=== PATIENT | female | born 1990 | race Caucasian/White ===

== ENCOUNTER 2018-10-07 14:00 | Inpatient (IN) | payer BC ==
[2018-10-07] MEDS ORDERED: Nalbuphine 20 MG/ML 1 ML Syringe IVPUSH PRN (16:44)
[2018-10-07] MEDS ORDERED: Ondansetron 4 MG/2 ML SDV IVPUSH PRN ×2 (16:44→17:06)
[2018-10-07] MEDS ORDERED: Sodium Chloride 0.9% 10 ML SDV FLUSH PRN (16:44)
[2018-10-07] MEDS ORDERED: Oxytocin/Lactated Ringers 10 UNIT/1,000 ML BAG IV SCH (16:45)
--- NOTE | 2018-10-07 16:46 | PCM.LDHP ---
L&D History of Present Illness - General Date of Service: 10/07/18 Admit Problem/Dx: Patient Status Order with Admit Dx/Problem 10/07/18 14:37 Patient Status [ADT] Routine 10/07/18 16:44 Patient Status [ADT] Routine Admission Diagnosis/Problem Admission Diagnosis/Problem Source of Information: Patient History Limitations: Reports: No Limitations - History of Present Illness Introduction:: Patient is a 28 y/o at 39 0/7 wks who presents for concerns of possible ROM. This wet/leaking feeling started a few hours ago. No significant contractions. No other concerns. - Related Data Allergies/Adverse Reactions: Allergies Allergy/AdvReac Type Severity Reaction Status Date / Time Sulfa (Sulfonamide Allergy Other Verified 10/07/18 14:36 Antibiotics) Home Medications: Home Meds Vits #93/Iron Fum/FA [ Formula Tablet] 1 tab PO DAILY 10/07/18 [History] Past Medical History Respiratory History: Reports: Asthma CHAINMAN History: Reports: , Spontaneous : 4 Para: 1 LMP (Approximate): Hematologic History: Reports: Blood Transfusion(s) - Past Surgical History Female Surgical History: Reports: D&C (Multiple after delivery in 2011 and one after SAB in 2014), Other (See Below) (Diagnostic laparoscopy Hysteroscopy) Social & Family History - Tobacco Use Smoking Status *Q: Never Smoker - Alcohol Use Alcohol Use History: No - Recreational Drug Use Recreational Drug Use: No H&P Review of Systems - Review of Systems: Review Of Systems: See Below General: Reports: No Symptoms Pulmonary: Reports: No Symptoms Cardiovascular: Reports: No Symptoms Gastrointestinal: Reports: No Symptoms Genitourinary: Reports: No Symptoms Musculoskeletal: Reports: No Symptoms Skin: Reports: No Symptoms Psychiatric: Reports: No Symptoms Neurological: Reports: No Symptoms L&D Exam - Exam Exam: See Below - Vital Signs Weight: 74.389 kg - OB Specific Contraction Intensity: Irritability Movement: Active Heart Tones: Present Heart Tones per Min: 130 Heart Rate (FHR) Variability: Moderate (6-25 bmp) Presentation: Vertex - Loza Score Loza Score Cervix Position: Midposition Loza Score Consistency: Soft Loza Score Effacement: 51-70% Loza Score Dilation: 3-4 cm Loza Score 's Station: -2 Loza Score Total: 8 - Exam General: Alert, Oriented, Cooperative Lungs: Clear to Auscultation, Normal Respiratory Effort Cardiovascular: Regular Rate, Regular Rhythm GI/Abdominal Exam: Soft, Non-Tender Genitourinary: Normal external exam Extremities: Normal Inspection Skin: Warm, Dry, Intact - Patient Data Lab Results Last 24 hrs: Laboratory Results - last 24 hr 10/07/18 Range/Units 14:45 Membrane Rupture Negative Result Diagrams: 10/07/18 17:00 - Problem List (1) 39 weeks gestation of SNOMED Code(s): 32416537 ICD Code: Z3A.39 - 39 WEEKS GESTATION OF Status: Acute Current Visit: Yes (2) Rh negative state in antepartum period SNOMED Code(s): 705424162 ICD Code: O26.899 - OTH RELATED CONDITIONS, UNSPECIFIED TRIMESTER; Z67.91 - UNSPECIFIED BLOOD TYPE, RH NEGATIVE Status: Acute Current Visit: Yes Problem List Initiated/Reviewed/Updated: Yes Orders Last 24hrs: Active Orders 24 hr Category Date Time Status Patient Status [ADT] Routine ADT 10/07/18 14:37 Active Patient Status [ADT] Routine ADT 10/07/18 16:44 Ordered Activity as Tolerated [RC] PFP Care 10/07/18 16:44 Ordered Communication Order [RC] ASDIRECTED Care 10/07/18 16:44 Ordered Heart Tones [RC] ASDIRECTED Care 10/07/18 16:44 Ordered Non Stress Test [RC] PER UNIT ROUTINE Care 10/07/18 14:37 Active Non Stress Test [RC] PER UNIT ROUTINE Care 10/07/18 16:44 Ordered Notify Provider [RC] PFP Care 10/07/18 16:44 Ordered Notify Provider [RC] PRN Care 10/07/18 16:44 Ordered Peripheral IV Care [RC] . DIRECTED Care 10/07/18 16:44 Ordered Vaginal Exam [RC] PRN Care 10/07/18 14:37 Active Vital Signs [RC] PER UNIT ROUTINE Care 10/07/18 14:37 Active Vital Signs [RC] PER UNIT ROUTINE Care 10/07/18 16:44 Ordered Regular Diet [DIET] Diet 10/07/18 Dinner Ordered CBC W/O DIFF,HEMOGRAM [HEME] Routine Lab 10/07/18 16:44 Ordered RAPID PLASMA REAGIN,RPR [CHEM] Routine Lab 10/07/18 16:44 Ordered TYPE AND SCREEN [BBK] Routine Lab 10/07/18 16:44 Ordered Lactated Ringers [Ringers, Lactated] 1,000 ml Med 10/07/18 16:45 Ordered IV ASDIRECTED Nalbuphine [Nubain] Med 10/07/18 16:44 Ordered 10 mg IVPUSH Q2H PRN Ondansetron [Zofran] Med 10/07/18 16:44 Ordered 4 mg IVPUSH Q4H PRN Oxytocin/Lactated Ringers [Pitocin in LR 10 Units/1,000 Med 10/07/18 16:45 Ordered ML] 10 unit in 1,000 ml IV .CONTINUOUS Sodium Chloride 0.9% [Saline Flush] Med 10/07/18 16:44 Ordered 10 ml FLUSH ASDIRECTED PRN Electronic Heart Tones Ext w TOCO [WOMSER] Oth 10/07/18 16:44 Ordered Routine Electronic Heart Tones Internal [WOMSER] Per Unit Ot 10/07/18 16:44 Ordered Routine Peripheral IV Insertion Adult [OM.PC] Routine Oth 10/07/18 16:44 Ordered Resuscitation Status Routine Resus Stat 10/07/18 14:37 Ordered Assessment/Plan Comment:: 28 y/o at 39 0/7 wks who presented for concerns of ROM. Amnisure done and negative, but during course of monitoring baby with spontaneous deceleration down to the 50's with slow recovery over 4 minutes. Will keep for IOL for this findings. 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 Also with diagnosis of Ashermans afterwards. Will monitor closely and have uterotonic agents in room in case further concerns this
[2018-10-07] MEDS ORDERED: fentaNYL/Bupivacaine-NS 2 MCG/ML-0.125%/PF 100 ML Bag EPIDUR ONE (17:06)
[2018-10-07] MEDS ORDERED: fentaNYL 100 MCG/2 ML SDV EPIDUR PRN (17:06)
[2018-10-07] MEDS ORDERED: ePHEDrine 50 MG/ML SDV IVPUSH PRN (17:06)
--- NOTE | 2018-10-07 17:11 | PCM.PREANE ---
Preanesthetic Assessment - Anesthesia/Transfusion/Family Hx Anesthesia History: Prior Anesthesia Without Reaction Family History of Anesthesia Reaction: No Transfusion History: Prior Transfusion Without Reaction Intubation History: Unknown - Review of Systems General: No Symptoms Pulmonary: No Symptoms (exercise induced inhaler) Cardiovascular: No Symptoms Gastrointestinal: No Symptoms, Constipation Neurological: No Symptoms Other: Reports: None, Easy Bruising - Physical Assessment NPO Status Date: 10/07/18 NPO Status Time: 10:00 Pulse: 74 O2 Sat by Pulse Oximetry: 99 Respiratory Rate: 18 Blood Pressure: 117/70 Temperature: 36.6 C Height: 1.57 m Weight: 74.389 kg ASA Class: 2 Mental Status: Alert & Oriented x3 Airway Class: Mallampati = 2 Dentition: Reports: Normal Dentition, Missing Tooth/Teeth, Caries Thyro-Mental Finger Breadths: 3 Mouth Opening Finger Breadths: 3 ROM/Head Extension: Full Lungs: Clear to Auscultation, Normal Respiratory Effort Cardiovascular: Regular Rate, Regular Rhythm, No Murmurs - Lab Values: Laboratory Last Values WBC 12.11 K/mm3 (3.98-10.04) H 10/07/18 17:00 RBC 4.35 M/mm3 (3.98-5.22) 10/07/18 17:00 Hgb 11.2 gm/L (11.2-15.7) 10/07/18 17:00 Hct 34.7 % (34.1-44.9) 10/07/18 17:00 MCV 79.8 fl (79.4-94.8) 10/07/18 17:00 MCH 25.7 pg (25.6-32.2) 10/07/18 17:00 MCHC 32.3 g/dl (32.2-35.5) 10/07/18 17:00 RDW Std Deviation 39.3 fL (36.4-46.3) 10/07/18 17:00 Plt Count 211 K/mm3 (182-369) 10/07/18 17:00 MPV 11.4 fl (9.4-12.3) 10/07/18 17:00 Membrane Rupture Negative 10/07/18 14:45 Above labs reviewed and noted and within acceptable ranges to proceed with epidural if desired. - Allergies Allergies/Adverse Reactions: Allergies Allergy/AdvReac Type Severity Reaction Status Date / Time Sulfa (Sulfonamide Allergy Other Verified 10/07/18 14:36 Antibiotics) - Anesthesia Plan Pre-Op Medication Ordered: None - Acknowledgements Anesthesia Type Planned: Epidural Pt an Appropriate Candidate for the Planned Anesthesia: Yes Alternatives and Risks of Anesthesia Discussed w Pt/Guardian: Yes Pt/Guardian Understands and Agrees with Anesthesia Plan: Yes PreAnesthesia Questionnaire LENS GRINDER History: Reports: Polycystic Ovaries, Other (See Below) Other OB/BYN History: asherman's syndrome, PPH WITH PRIOR DELIVERY Neurological History: Reports: Migraines - Past Surgical History HEENT Surgical History: Reports: Oral Surgery - SUBSTANCE USE Smoking Status *Q: Never Smoker Second Hand Smoke Exposure: No Recreational Drug Use History: No - CURRENT (IN HOUSE) MEDS Current Meds: Current Medications Ephedrine Sulfate (Ephedrine Sulfate) 5 mg IVPUSH ASDIRECTED PRN PRN Reason: Hypotension Fentanyl (Sublimaze) 100 mcg EPIDUR Q3H PRN PRN Reason: Pain Lactated Ringer's (Ringers, Lactated) 1,000 mls @ 100 mls/hr IV ASDIRECTED ROSSANA Oxytocin/Lactated Ringer's (Pitocin In Lr 10 Units/1,000 Ml) 10 unit in 1,000 mls @ 500 mls/hr IV .CONTINUOUS ROSSANA Phenylephrine HCl 1 mg/ Sodium (Chloride) 10.1 mls @ 1 mls/sec IV TITRATE ROSSANA; Protocol Nalbuphine HCl (Nubain) 10 mg IVPUSH Q2H PRN PRN Reason: pain Ondansetron HCl (Zofran) 4 mg IVPUSH Q4H PRN PRN Reason: Nausea/Vomiting Ondansetron HCl (Zofran) 4 mg IVPUSH ONETIME PRN PRN Reason: Nausea/Vomiting Sodium Chloride (Normal Saline) 10 ml FLUSH ASDIRECTED PRN PRN Reason: Keep Vein Open Discontinued Medications Fentanyl/Bupivacaine HCl (Tbkxiicf-Prqby-Ql 2 Mcg/Ml-0.125%) 100 ml EPIDUR ONETIME ONE Stop: 10/07/18 17:07
[2018-10-07] MEDS ORDERED: Phenylephrine 1 MG in Sodium Chloride 0.9% 10 ML IV SCH (17:15)
[2018-10-07] MEDS: Lactated Ringers 1,000 ML IV SCH ×3 (19:37→21:07)
[2018-10-07] MEDS ORDERED: fentaNYL/Bupivacaine-NS 2 MCG/ML-0.125%/PF 100 ML Bag EPIDUR PRN (20:08)
[2018-10-07] MEDS ORDERED: Lidocaine 1.5% with EPINEPHrine 1:200,000 5 ML Amp ONE (22:00)
[2018-10-07] MEDS ORDERED: Bupivacaine 0.25% 10 ML SDV ONE (22:00)
--- NOTE | 2018-10-07 23:46 | PCM.DEL ---
L & D Note - General Info Date of Service: 10/07/18 - Delivery Note Labor: Induced by ARM Delivery Outcome: Livebirth Infant Delivery Method: Spontaneous Vaginal Delivery-Single Infant Delivery Mode: Vacuum Extraction Presentation: Right Occiput Anterior (JEWEL) Nuchal Cord: None Anesthesia Type: Epidural Amniotic Fluid Description: Clear Episiotomy Type: None Laceration: 2nd Degree, Labial (left sided ), Perineal, Sulcus Suture type: Vicryl Suture size: 2-0 Placenta: Intact, Spontaneous Cord: 3 Vessels Estimated Blood Loss: 300 : Bulb Syringe, Stimulated, Warmed, Leck Kill Used, Warmer Used Delivery Comments (Free Text/Narrative):: The patient was pushing in the dorsal lithotomy position. Sterile vaginal exam complete/complete/+3 station. head in JEWEL presentation. With maternal pushing effort there was a bradycardia. This was at 2248 down to the 60' s for 2 minutes with a brief recovery to 110 and then back down to 60's-70's. Given prolonged deceleration vacuum applied at 2254. The mushroom cup was placed without difficulty with care to avoid the vaginal side pastor. Total pressure applied 550 mg. Pop off did occur at 2257 after 2 contractions. At this point, however, heart rate noted to be in 100's and felt safe to allow continued maternal pushing effort without subsequent reapplication of vacuum. head delivered from JEWEL presentation. No nuchal cord present. With gentle downward traction the shoulders and body delivered. Delivery at 2313. placed on maternal abdomen. Cord clamped and cut. Cord blood obtained. Placenta allowed time to separate and expelled intact. Inspection of the perineum following delivery with 2nd degree left sulcus/perineal tear repaired with a 2-0 vicryl in the typical fashion. Left sided labial tear repaired with a running 2-0 vicryl Vacuum Extractor Progress Note - Alternative Labor Strategies Considered Alternative Labor Strategies Considered:: Reports: Yes Strategies Considered:: Reports: Empty Bladder Indications Considered:: Reports: Yes Indications:: Reports: Suspicion of Immediate or Potential Compromise Time Out:: Reports: Yes - Patient Prepared Patient Prepared:: Reports: Yes Informed Consent:: Reports: Verbal Risks: Reports: Yes Risks Include:: Reports: Laceration, Shoulder Dystocia, Maternal Injury, Other Anesthesia/Analgesia Adequate:: Reports: Yes - Probability of Success High Probability of Success:: Reports: Yes Weight Estimated:: Reports: AGA Patient Diabetic:: Reports: No Pelvis Adequate:: Reports: Yes Position:: JEWEL Asynclitic:: Reports: No Station:: +3 - Application Time Maximum Application Time & Number of Pop-Offs Predetermined:: Reports: Yes Maximum Pressure Maintained in Green Zone (cm Hg):: 550 Total Application Time (min): *max=20min: 4 Number of Times Cup Disengaged:: 1 Type of Vacuum Used:: Reports: Cup: Mushroom type Vacuum Extraction: Successful - Exit Strategy Exit strategy available:: Reports: Yes and resuscitation teams readily available:: Reports: Yes - General Info Date of Service: 10/07/18 - Patient Data Vitals - Most Recent: Last Vital Signs Temp 36.6 C 10/07/18 17:29 Pulse 76 10/07/18 21:00 Resp 18 10/07/18 17:29 BP 121/62 10/07/18 21:00 Pulse Ox 99 10/07/18 20:12 Weight - Most Recent: 74.389 kg I&O - Last 24 Hours: Intake & Output 10/07/18 10/07/18 10/08/18 14:59 22:59 06:59 Intake Total 0 Balance 0 - Problem List & Annotations (1) 39 weeks gestation of SNOMED Code(s): 05808488 Code(s): Z3A.39 - 39 WEEKS GESTATION OF Status: Acute Current Visit: Yes (2) Rh negative state in antepartum period SNOMED Code(s): 338315843 Code(s): O26.899 - OTH RELATED CONDITIONS, UNSPECIFIED TRIMESTER; Z67.91 - UNSPECIFIED BLOOD TYPE, RH NEGATIVE Status: Acute Current Visit: Yes (3) Status post vacuum-assisted vaginal delivery SNOMED Code(s): 741796185, [id number] Code(s): Z87.59 - PERSONAL HISTORY OF COMP OF PREG, CHLDBRTH AND THE PUERP Status: Acute Current Visit: Yes - Problem List Review Problem List Initiated/Reviewed/Updated: Yes - My Orders Last 24 Hours: My Active Orders 10/07/18 14:37 Vital Signs [RC] PER UNIT ROUTINE Resuscitation Status Routine 10/07/18 16:44 Patient Status [ADT] Routine Activity as Tolerated [RC] PFP Communication Order [RC] ASDIRECTED Non Stress Test [RC] PER UNIT ROUTINE Notify Provider [RC] PFP Notify Provider [RC] PRN Peripheral IV Care [RC] Q2HR Vital Signs [RC] PER UNIT ROUTINE Nalbuphine [Nubain] 10 mg IVPUSH Q2H PRN Ondansetron [Zofran] 4 mg IVPUSH Q4H PRN Sodium Chloride 0.9% [Normal Saline] 10 ml FLUSH ASDIRECTED PRN Electronic Heart Tones Ext w TOCO [WOMSER] Routine Electronic Heart Tones Internal [WOMSER] Per Unit Routine Peripheral IV Insertion Adult [OM.PC] Routine 10/07/18 16:45 Lactated Ringers [Ringers, Lactated] 1,000 ml IV ASDIRECTED Oxytocin/Lactated Ringers [Pitocin in LR 10 Units/1,000 ML] 10 unit in 1,000 ml IV .CONTINUOUS 10/07/18 17:00 ANTIBODY IDENTIFICATION [BBK] Routine RAPID PLASMA REAGIN,RPR [CHEM] Routine TYPE AND SCREEN [BBK] Routine 10/07/18 Dinner Regular Diet [DIET] - Assessment Assessment:: 28 y/o G4 now P2022 PPD#0 from [facility] - Plan Plan:: * Routine cares * Encourage breast feeding * Assess baby blood type to assess need for Rhogam * Discharge home in 2 days
[2018-10-08] MEDS ORDERED: Acetaminophen 325 MG Tab PO PRN (00:38)
[2018-10-08] MEDS ORDERED: Lanolin 100% Cream 7 GM Tube TOP PRN (00:38)
[2018-10-08] MEDS ORDERED: Benzocaine/Menthol 20%-0.5% Spray 56 GM Canister TOP PRN (00:38)
[2018-10-08] MEDS ORDERED: Witch Hazel Medicated Pads 40/Jar TOP PRN (00:38)
[2018-10-08] MEDS: Ibuprofen 600 MG Tab PO PRN ×3 (01:51→20:25)
[2018-10-08] MEDS: Docusate Sodium 100 MG Cap PO PRN (01:51)
--- NOTE | 2018-10-08 09:44 | PCM.PNPP ---
- General Info Date of Service: 10/08/18 Functional Status: Reports: Pain Controlled, Tolerating Diet, Ambulating, Urinating - Review of Systems General: Reports: No Symptoms Pulmonary: Reports: No Symptoms Cardiovascular: Reports: No Symptoms Gastrointestinal: Reports: No Symptoms Genitourinary: Reports: No Symptoms Musculoskeletal: Reports: No Symptoms - Patient Data Vital Signs - Most Recent: Last Vital Signs Temp 37.2 C 10/08/18 02:55 Pulse 90 10/08/18 02:55 Resp 14 10/08/18 02:55 BP 107/60 10/08/18 02:55 Pulse Ox 95 10/08/18 02:55 Weight - Most Recent: 74.389 kg I&O - Last 24 Hours: Intake & Output 10/07/18 10/08/18 10/08/18 22:59 06:59 14:59 Intake Total 0 4000 Output Total 75 Balance -75 4000 Lab Results - Last 24 Hours: Laboratory Results - last 24 hr 10/07/18 10/07/18 10/07/18 Range/Units 14:45 17:00 17:00 WBC 12.11 H (3.98-10.04) K/mm3 RBC 4.35 (3.98-5.22) M/mm3 Hgb 11.2 (11.2-15.7) gm/L Hct 34.7 (34.1-44.9) % MCV 79.8 (79.4-94.8) fl MCH 25.7 (25.6-32.2) pg MCHC 32.3 (32.2-35.5) g/dl RDW Std Deviation 39.3 (36.4-46.3) fL Plt Count 211 (182-369) K/mm3 MPV 11.4 (9.4-12.3) fl Membrane Rupture Negative Blood Type O NEGATIVE Gel Antibody Screen Positive Med Orders - Current: Current Medications Acetaminophen (Tylenol) 650 mg PO Q4H PRN PRN Reason: mild pain or fever Benzocaine/Menthol (Dermoplast Pain Relief [place]) 0 gm TOP ASDIRECTED PRN PRN Reason: Perineal Comfort Measure Last Admin: 10/08/18 01:53 Dose: 1 can Docusate Sodium (Colace) 100 mg PO BID PRN PRN Reason: Constipation Last Admin: 10/08/18 01:51 Dose: 100 mg Emollient Ointment (Lansinoh Hpa) 0 gm TOP ASDIRECTED PRN PRN Reason: Sore Nipples Last Admin: 10/08/18 01:52 Dose: 1 tube Ibuprofen (Motrin) 600 mg PO Q6H PRN PRN Reason: Mild pain or fever Last Admin: 10/08/18 01:51 Dose: 600 mg Witch Jackie (Tucks) 1 pad TOP ASDIRECTED PRN PRN Reason: Pain Last Admin: 10/08/18 01:53 Dose: 1 container Discontinued Medications Ephedrine Sulfate (Ephedrine Sulfate) 5 mg IVPUSH ASDIRECTED PRN PRN Reason: Hypotension Fentanyl (Sublimaze) 100 mcg EPIDUR Q3H PRN PRN Reason: Pain Last Admin: 10/07/18 20:10 Dose: 100 mcg Fentanyl/Bupivacaine HCl (Tgidkdvo-Cnalk-Vd 2 Mcg/Ml-0.125%) 100 ml EPIDUR ONETIME ONE Stop: 10/07/18 17:07 Last Admin: 10/07/18 20:14 Dose: 100 ml Fentanyl/Bupivacaine HCl (Frujrjpz-Gqtcp-Fa 2 Mcg/Ml-0.125%) 100 ml EPIDUR ASDIRECTED PRN PRN Reason: PAIN Lactated Ringer's (Ringers, Lactated) 1,000 mls @ 100 mls/hr IV ASDIRECTED ROSSANA Last Admin: 10/07/18 21:07 Dose: 100 mls/hr Oxytocin/Lactated Ringer's (Pitocin In Lr 10 Units/1,000 Ml) 10 unit in 1,000 mls @ 500 mls/hr IV .CONTINUOUS ROSSANA Last Admin: 10/07/18 23:14 Dose: 999 mls/hr Phenylephrine HCl 1 mg/ Sodium (Chloride) 10.1 mls @ 1 mls/sec IV TITRATE ROSSANA; Protocol Nalbuphine HCl (Nubain) 10 mg IVPUSH Q2H PRN PRN Reason: pain Ondansetron HCl (Zofran) 4 mg IVPUSH Q4H PRN PRN Reason: Nausea/Vomiting Ondansetron HCl (Zofran) 4 mg IVPUSH ONETIME PRN PRN Reason: Nausea/Vomiting Sodium Chloride (Normal Saline) 10 ml FLUSH ASDIRECTED PRN PRN Reason: Keep Vein Open - Infant Interaction Disposition, : [place] in Room with Family Infant Interaction: Holding Feeding: Attempted ; Nursed Fair/Poor Support Person: - Recovery Exam Fundal Tone: Firm Fundal Level: 1 Fingerbreadths Below Umbilicus Fundal Placement: Midline Lochia Amount: Small, Moderate Lochia Color: Rubra/Red Perineum Description: Other (see below) Other Perinuem Description: 2nd degree laceration with repair Episiotomy/Laceration: Approximated Bladder Status: Voiding Urinary Elimination: Voided - Exam General: Alert, Oriented, Cooperative GI/Abdominal Exam: Soft, Non-Tender Extremities: Normal Inspection Skin: Warm, Dry, Intact - Problem List & Annotations (1) 39 weeks gestation of SNOMED Code(s): 88900382 Code(s): Z3A.39 - 39 WEEKS GESTATION OF Status: Acute Current Visit: Yes (2) Rh negative state in antepartum period SNOMED Code(s): 162726228 Code(s): O26.899 - OTH RELATED CONDITIONS, UNSPECIFIED TRIMESTER; Z67.91 - UNSPECIFIED BLOOD TYPE, RH NEGATIVE Status: Acute Current Visit: Yes (3) Status post vacuum-assisted vaginal delivery SNOMED Code(s): 551856388, [id number] Code(s): Z87.59 - PERSONAL HISTORY OF COMP OF PREG, CHLDBRTH AND THE PUERP Status: Acute Current Visit: Yes - Problem List Review Problem List Initiated/Reviewed/Updated: Yes - My Orders Last 24 Hours: My Active Orders 10/07/18 14:37 Resuscitation Status Routine 10/07/18 16:44 Non Stress Test [RC] PER UNIT ROUTINE 10/07/18 17:00 ANTIBODY IDENTIFICATION [BBK] Routine RAPID PLASMA REAGIN,RPR [CHEM] Routine TYPE AND SCREEN [BBK] Routine 10/08/18 00:38 Activity as Tolerated [RC] PER UNIT ROUTINE Vital Signs [RC] 03,09,15,21 Acetaminophen [Tylenol] 650 mg PO Q4H PRN Benzocaine/Menthol [Dermoplast Pain Relief [place]] See Dose Instructions TOP ASDIRECTED PRN Docusate Sodium [Colace] 100 mg PO BID PRN Ibuprofen [Motrin] 600 mg PO Q6H PRN Lanolin [Lansinoh HPA] See Dose Instructions TOP ASDIRECTED PRN Witch Jackie [Tucks] 1 pad TOP ASDIRECTED PRN Assess Lochia [WOMSER] Per Unit Routine Assess Uterine Involution [WOMSER] Per Unit Routine Breast Pump [WOMSER] Per Unit Routine Heat Therapy [OM.PC] PRN Ice Therapy [OM.PC] Per Unit Routine Perineal Care [OM.PC] Per Unit Routine Peripheral IV Discontinue [OM.PC] Routine Sitz Bath [OM.PC] Per Unit Routine 10/08/18 Breakfast Regular Diet [DIET] 10/09/18 00:38 Heat Therapy [OM.PC] PRN - Assessment Assessment:: 28 y/o G4 now P2022 PPD#1 from [facility] - Plan Plan:: * Routine cares * Encourage breast feeding * Baby Rh negative, no need for additional Rhogam * Discharge home tomorrow
--- NOTE | 2018-10-08 11:43 | PCM48HPAN ---
Post Anesthesia Note - EVALUATION WITHIN 48HRS OF ANESTHETIC Vital Signs in Normal Range: Yes Patient Participated in Evaluation: Yes Respiratory Function Stable: Yes Airway Patent: Yes Cardiovascular Function Stable: Yes Hydration Status Stable: Yes Pain Control Satisfactory: Yes Nausea and Vomiting Control Satisfactory: Yes Mental Status Recovered: Yes
[2018-10-09] MEDS: Ibuprofen 600 MG Tab PO PRN (03:02)
[2018-10-09] MEDS: Docusate Sodium 100 MG Cap PO PRN (03:02)
--- NOTE | 2018-10-09 07:22 | PCM.DCSUM1 ---
Discharge Summary - Hospital Course Diagnosis: Stroke: No - Discharge Data Discharge Date: 10/09/18 Discharge Disposition: Home, Self-Care 01 Condition: Good - Patient Instructions Diet: Usual Diet as Tolerated Activity: No Strenuous Activities Driving: May Drive Today Showering/Bathing: May Shower Wound/Incision Care: Keep Operative Site/Wound Site Clean and Dry Notify Provider of: Fever, Increased Pain, Swelling and Redness, Drainage, Nausea and/or Vomiting - Discharge Plan *PRESCRIPTION DRUG MONITORING PROGRAM REVIEWED*: No *COPY OF PRESCRIPTION DRUG MONITORING REPORT IN PATIENT IVETTE: No Home Medications: Home Meds Vits #93/Iron Fum/FA [ Formula Tablet] 1 tab PO DAILY 10/07/18 [History] Referrals: Shahla Valente MD [Primary Care Provider] - - Discharge Summary/Plan Comment DC Time >30 min.: No - General Info Date of Service: 10/09/18 Functional Status: Reports: Pain Controlled - Review of Systems General: Reports: No Symptoms HEENT: Reports: No Symptoms Pulmonary: Reports: No Symptoms Cardiovascular: Reports: No Symptoms Gastrointestinal: Reports: No Symptoms Genitourinary: Reports: No Symptoms Musculoskeletal: Reports: No Symptoms Skin: Reports: No Symptoms Neurological: Reports: No Symptoms Psychiatric: Reports: No Symptoms - Patient Data Vitals - Most Recent: Last Vital Signs Temp 36.4 C 10/09/18 03:05 Pulse 63 10/09/18 03:05 Resp 16 10/09/18 03:05 BP 117/84 10/09/18 03:05 Pulse Ox 97 10/09/18 03:05 Weight - Most Recent: 74.389 kg I&O - Last 24 hours: Intake & Output 10/08/18 10/09/18 10/09/18 22:59 06:59 14:59 Intake Total 320 Balance 320 Lab Results - Last 24 hrs: Laboratory Results - last 24 hr 10/07/18 Range/Units 17:00 RPR Non-reactive (NONREACTIVE) Med Orders - Current: Current Medications Acetaminophen (Tylenol) 650 mg PO Q4H PRN PRN Reason: mild pain or fever Last Admin: 10/08/18 17:16 Dose: 650 mg Benzocaine/Menthol (Dermoplast Pain Relief [place]) 0 gm TOP ASDIRECTED PRN PRN Reason: Perineal Comfort Measure Last Admin: 10/08/18 01:53 Dose: 1 can Docusate Sodium (Colace) 100 mg PO BID PRN PRN Reason: Constipation Last Admin: 10/09/18 03:02 Dose: 100 mg Emollient Ointment (Lansinoh Hpa) 0 gm TOP ASDIRECTED PRN PRN Reason: Sore Nipples Last Admin: 10/08/18 01:52 Dose: 1 tube Ibuprofen (Motrin) 600 mg PO Q6H PRN PRN Reason: Mild pain or fever Last Admin: 10/09/18 03:02 Dose: 600 mg Witch Jackie (Tucks) 1 pad TOP ASDIRECTED PRN PRN Reason: Pain Last Admin: 10/08/18 01:53 Dose: 1 container Discontinued Medications Bupivacaine HCl (Sensorcaine-Mpf 0.25%) 10 ml .ROUTE .STK-MED ONE Stop: 10/07/18 22:01 Ephedrine Sulfate (Ephedrine Sulfate) 5 mg IVPUSH ASDIRECTED PRN PRN Reason: Hypotension Fentanyl (Sublimaze) 100 mcg EPIDUR Q3H PRN PRN Reason: Pain Last Admin: 10/07/18 20:10 Dose: 100 mcg Fentanyl/Bupivacaine HCl (Uuucpckc-Qzhmc-No 2 Mcg/Ml-0.125%) 100 ml EPIDUR ONETIME ONE Stop: 10/07/18 17:07 Last Admin: 10/07/18 20:14 Dose: 100 ml Fentanyl/Bupivacaine HCl (Zczbtfdg-Gxpgc-Lc 2 Mcg/Ml-0.125%) 100 ml EPIDUR ASDIRECTED PRN PRN Reason: PAIN Lactated Ringer's (Ringers, Lactated) 1,000 mls @ 100 mls/hr IV ASDIRECTED ROSSANA Last Admin: 10/07/18 21:07 Dose: 100 mls/hr Oxytocin/Lactated Ringer's (Pitocin In Lr 10 Units/1,000 Ml) 10 unit in 1,000 mls @ 500 mls/hr IV .CONTINUOUS ROSSANA Last Admin: 10/07/18 23:14 Dose: 999 mls/hr Phenylephrine HCl 1 mg/ Sodium (Chloride) 10.1 mls @ 1 mls/sec IV TITRATE ROSSANA; Protocol Lidocaine/Epinephrine (Xylocaine-Mpf 1.5% W/Epinephrine 1:200,000) 5 ml .ROUTE .STK-MED ONE Stop: 10/07/18 22:01 Nalbuphine HCl (Nubain) 10 mg IVPUSH Q2H PRN PRN Reason: pain Ondansetron HCl (Zofran) 4 mg IVPUSH Q4H PRN PRN Reason: Nausea/Vomiting Ondansetron HCl (Zofran) 4 mg IVPUSH ONETIME PRN PRN Reason: Nausea/Vomiting Sodium Chloride (Normal Saline) 10 ml FLUSH ASDIRECTED PRN PRN Reason: Keep Vein Open - Exam General: Reports: Alert, Oriented HEENT: Reports: Pupils Equal, Pupils Reactive, EOMI, Mucous Membr. Moist/[place] Neck: Reports: Supple Lungs: Reports: Clear to Auscultation, Normal Respiratory Effort Cardiovascular: Reports: Regular Rate, Regular Rhythm GI/Abdominal Exam: Normal Bowel Sounds, Soft, Non-Tender, No Organomegaly, No Distention, No Abnormal Bruit, No Mass, Pelvis Stable Back Exam: Reports: Normal Inspection, Full Range of Motion Extremities: Normal Inspection, Normal Range of Motion, Non-Tender, No Pedal Edema, Normal Capillary Refill Skin: Reports: Warm, Dry, Intact Wound/Incisions: Reports: Healing Well Neurological: Reports: No New Focal Deficit Psy/Mental Status: Reports: Alert, Normal Affect, Normal Mood
== END 2018-10-09 12:45 | disposition home or self-care (01) | DRG 560 ==
LOC: JD.OBCHECK 14:00 → JD.OB 14:06 → JD.OBCHECK 16:43 → JD.OB 16:44 → OBSVTOIN 23:13 → JD.OB 23:13
PROVIDERS: ADMIT Obstetrics & Gynecology; ATTEND Obstetrics & Gynecology
PROC: 10907ZC Drainage of Amniotic Fluid, Therapeutic from Products of Conception, Via Natural or Artificial Opening (ICD-10-PCS; principal; 2018-10-07)
PROC: 0UQMXZZ Repair Vulva, External Approach (ICD-10-PCS; principal; 2018-10-07)
PROC: 3E033VJ Introduction of Other Hormone into Peripheral Vein, Percutaneous Approach (ICD-10-PCS; principal; 2018-10-07)
PROC: 10D07Z6 Extraction of Products of Conception, Vacuum, Via Natural or Artificial Opening (ICD-10-PCS; principal; 2018-10-07)
PROC: 0KQM0ZZ Repair Perineum Muscle, Open Approach (ICD-10-PCS; principal; 2018-10-07)
PROC: 6A550ZT Pheresis of Cord Blood Stem Cells, Single (ICD-10-PCS; principal; 2018-10-07)
PROC: 3E0R3BZ Introduction of Anesthetic Agent into Spinal Canal, Percutaneous Approach (ICD-10-PCS; 2018-10-07)
PROC: 00HU33Z Insertion of Infusion Device into Spinal Canal, Percutaneous Approach (ICD-10-PCS; 2018-10-07)
DX: O76 Abnormality in fetal heart rate and rhythm complicating labor and delivery (principal); Z3A.39 39 weeks gestation of pregnancy; Z37.0 Single live birth; O75.89 Other specified complications of labor and delivery; N85.6 Intrauterine synechiae; O70.1 Second degree perineal laceration during delivery; O99.284 Endocrine, nutritional and metabolic diseases complicating childbirth; E28.2 Polycystic ovarian syndrome; Z88.2 Allergy status to sulfonamides
CPT/HCPCS: 01967; 36415; 51702; 59025; 59409; 84112; 85027; 86592; 86850; 86870; 86900; 86901; A9270-GY; J2590; J3010; J3490; J7120

== ENCOUNTER 2020-11-15 07:18 | Inpatient (IN) | payer OTHER ==
[~2020-11-15 07:18] MED LIST: Bupivacaine 0.25% 10 ML SDV ONE
[2020-11-15] MEDS ORDERED: Sodium Chloride 0.9% 10 ML Syringe FLUSH PRN (07:22)
[2020-11-15] MEDS ORDERED: Nalbuphine 10 MG/1 ML Vial IVPUSH PRN (07:22)
--- NOTE | 2020-11-15 07:28 | PCM.LDHP ---
L&D History of Present Illness - General Date of Service: 11/15/20 Admit Problem/Dx: Patient Status Order with Admit Dx/Problem 11/15/20 07:22 Patient Status [ADT] Routine Admission Diagnosis/Problem Admission Diagnosis/Problem Normal in third trimester Source of Information: Patient History Limitations: Reports: No Limitations - History of Present Illness Introduction:: 30 y/o at 39 1/7 wks who presents for elective IOL today. Doing well. 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: , Spontaneous : 5 Para: 2 LMP (Approximate): Other OB/BYN History: asherman's syndrome, PPH WITH PRIOR DELIVERY Neurological History: Reports: Migraines Hematologic History: Reports: Blood Transfusion(s) - Past Surgical History Female Surgical History: Reports: D&C, Other (See Below) (Diagnostic laparos copy, Hysteroscopy) Social & Family History - Family History Family Medical History: No Pertinent Family History - Tobacco Use Tobacco Use Status *Q: Never Tobacco User - Alcohol Use Alcohol Use History: No - Recreational Drug Use Recreational Drug Use: No H&P Review of Systems - Review of Systems: Review Of Systems: See Below General: Reports: No Symptoms Pulmonary: Reports: No Symptoms Cardiovascular: Reports: No Symptoms Gastrointestinal: Reports: No Symptoms Genitourinary: Reports: No Symptoms Musculoskeletal: Reports: No Symptoms Psychiatric: Reports: No Symptoms Neurological: Reports: No Symptoms L&D Exam - Exam Exam: See Below - OB Specific Contraction Intensity: Mild Movement: Active Heart Tones: Present Heart Tones per Min: 145 Heart Rate (FHR) Variability: Moderate (6-25 bmp) Presentation: Vertex - Loza Score Loza Score Cervix Position: Midposition Loza Score Consistency: Soft Loza Score Effacement: 31-50% Loza Score Dilation: 3-4 cm Loza Score Infant's Station: -2 Loza Score Total: 7 - Exam General: Alert, Oriented, Cooperative Lungs: Clear to Auscultation, Normal Respiratory Effort Cardiovascular: Regular Rate, Regular Rhythm GI/Abdominal Exam: Soft, Non-Tender Genitourinary: Normal external exam Extremities: Normal Inspection Skin: Warm, Dry, Intact - Patient Data Result Diagrams: 11/15/20 07:44 - Problem List (1) 39 weeks gestation of SNOMED Code(s): 82861448 ICD Code: Z3A.39 - 39 WEEKS GESTATION OF Status: Acute Current Visit: No (2) Rh negative state in antepartum period SNOMED Code(s): 326313548 ICD Code: O26.899 - OTH RELATED CONDITIONS, UNSPECIFIED TRIMESTER; Z67.91 - UNSPECIFIED BLOOD TYPE, RH NEGATIVE Status: Acute Current Visit: No Problem List Initiated/Reviewed/Updated: Yes Orders Last 24hrs: Active Orders 24 hr Category Date Time Status Patient Status [ADT] Routine ADT 11/15/20 07:22 Ordered Communication Order [RC] ASDIRECTED Care 11/15/20 07:22 Ordered Communication Order [RC] ASDIRECTED Care 11/15/20 07:22 Ordered Communication Order [RC] ASDIRECTED Care 11/15/20 07:22 Ordered Heart Tones [RC] ASDIRECTED Care 11/15/20 07:23 Ordered Non Stress Test [RC] PER UNIT ROUTINE Care 11/15/20 07:22 Ordered Notify Provider [RC] ASDIRECTED Care 11/15/20 07:22 Ordered Notify Provider [RC] PRN Care 11/15/20 07:22 Ordered Peripheral IV Care [RC] . DIRECTED Care 11/15/20 07:23 Ordered Up ad Judy [RC] ASDIRECTED Care 11/15/20 07:23 Ordered Vaginal Exam [RC] ASDIRECTED Care 11/15/20 07:22 Ordered Vital Signs [RC] ASDIRECTED Care 11/15/20 07:22 Ordered Regular Diet [DIET] Diet 11/15/20 Breakfast Ordered CBC W/O DIFF,HEMOGRAM [HEME] Routine Lab 11/15/20 07:22 Ordered CORONAVIRUS COVID-19 GRAZYNA [MOLEC] Stat Lab 11/15/20 07:24 Ordered HEP C VIRUS AB [REF] Routine Lab 11/15/20 07:22 Ordered RAPID PLASMA REAGIN,RPR [CHEM] Routine Lab 11/15/20 07:22 Ordered TYPE AND SCREEN [BBK] Routine Lab 11/15/20 07:22 Ordered Lactated Ringers [Ringers, Lactated] 1,000 ml Med 11/15/20 07:30 Ordered IV ASDIRECTED Nalbuphine [Nubain] [facility] 11/15/20 07:22 Ordered 10 mg IVPUSH Q2H PRN Ondansetron [Zofran] Med 11/15/20 07:22 Ordered 4 mg IVPUSH Q4H PRN Oxytocin/Lactated Ringers [Pitocin in LR 10 Units/1,000 Med 11/15/20 07:30 Ordered ML] 10 unit in 1,000 ml IV .CONTINUOUS Oxytocin/Lactated Ringers [Pitocin in LR 10 Units/1,000 Med 11/15/20 07:30 Ordered ML] 10 unit in 1,000 ml IV TITRATE Sodium Chloride 0.9% [Saline Flush] [facility] 11/15/20 07:22 Ordered 10 ml FLUSH ASDIRECTED PRN Electronic Heart Tones Ext w TOCO [WOMSER] Ot 11/15/20 07:22 Ordered Routine Electronic Heart Tones Internal [WOMSER] Per Unit Ot 11/15/20 07:22 Ordered Routine Peripheral IV Insertion Adult [OM.PC] Routine Ot 11/15/20 07:22 Ordered Resuscitation Status Routine Resus Stat 11/15/20 07:22 Ordered Medication Orders Oxytocin/Lactated Ringer's (Pitocin In Lr 10 Units/1,000 Ml) 10 unit in 1,000 mls @ 12 mls/hr IV TITRATE ROSSANA; Protocol Oxytocin/Lactated Ringer's (Pitocin In Lr 10 Units/1,000 Ml) 10 unit in 1,000 mls @ 500 mls/hr IV .CONTINUOUS ROSSANA Lactated Ringer's (Ringers, Lactated) 1,000 mls @ 40 mls/hr IV ASDIRECTED ROSSANA Nalbuphine HCl (Nalbuphine 10 Mg/1 Ml Vial) 10 mg IVPUSH Q2H PRN PRN Reason: Pain Ondansetron HCl (Ondansetron 4 Mg/2 Ml Sdv) 4 mg IVPUSH Q4H PRN PRN Reason: Nausea/Vomiting Sodium Chloride (Sodium Chloride 0.9% 10 Ml Syringe) 10 ml FLUSH ASDIRECTED PRN PRN Reason: Keep Vein Open Assessment/Plan Comment:: * Labs done * GBS negative * AROM / pitocin for IOL * Pain management per patient preference * Anticipate * Rh negative, assess blood type after delivery
[2020-11-15] MEDS ORDERED: Oxytocin/Lactated Ringers 10 UNIT/1,000 ML BAG IV SCH ×2 (07:30)
[2020-11-15] MEDS: Lactated Ringers 1,000 ML IV SCH ×3 (08:39→10:47)
[2020-11-15] MEDS ORDERED: diphenhydrAMINE 50 MG/ML SDV IVPUSH PRN (09:23)
[2020-11-15] MEDS ORDERED: fentaNYL 100 MCG/2 ML SDV EPIDUR PRN (09:23)
[2020-11-15] MEDS ORDERED: ePHEDrine 50 MG/ML SDV IVPUSH PRN (09:23)
[2020-11-15] MEDS: Bupivacaine/fentaNYL/NS 100 ML Bag EPIDUR PRN ×2 (09:36→17:59)
--- NOTE | 2020-11-15 10:18 | PCM.PREANE ---
Preanesthetic Assessment - Procedure Proposed Procedure: Labor Epidural - Anesthesia/Transfusion/Family Hx Anesthesia History: Prior Anesthesia Without Reaction Family History of Anesthesia Reaction: No Transfusion History: Prior Transfusion Without Reaction Intubation History: Unknown - Review of Systems General: No Symptoms Pulmonary: No Symptoms Cardiovascular: No Symptoms Gastrointestinal: Abdominal Pain Neurological: No Symptoms Other: Reports: None - Physical Assessment Vital Signs: Last Vital Signs Temp 36.8 C 11/15/20 08:03 Pulse 75 11/15/20 08:03 Resp 16 11/15/20 08:03 BP 105/69 11/15/20 08:03 Pulse Ox 96 11/15/20 08:03 Height: 1.57 m Weight: 69.853 kg ASA Class: 2 Mental Status: Alert & Oriented x3 Airway Class: Mallampati = 2 Dentition: Reports: Missing Tooth/Teeth, Caries Thyro-Mental Finger Breadths: 3 Mouth Opening Finger Breadths: 3 ROM/Head Extension: Full Lungs: Clear to Auscultation, Normal Respiratory Effort Cardiovascular: Regular Rate, Regular Rhythm - Lab Values: Laboratory Last Values WBC 9.70 K/mm3 (3.98-10.04) 11/15/20 07:44 RBC 4.26 M/mm3 (3.98-5.22) 11/15/20 07:44 Hgb 11.5 gm/dl (11.2-15.7) 11/15/20 07:44 Hct 35.5 % (34.1-44.9) 11/15/20 07:44 MCV 83.3 fl (79.4-94.8) D 11/15/20 07:44 MCH 27.0 pg (25.6-32.2) 11/15/20 07:44 MCHC 32.4 g/dl (32.2-35.5) 11/15/20 07:44 RDW Std Deviation 40.6 fL (36.4-46.3) 11/15/20 07:44 Plt Count 171 K/mm3 (182-369) L 11/15/20 07:44 MPV 12.2 fl (9.4-12.3) 11/15/20 07:44 SARS-CoV-2 RNA (GRAZYNA) Negative (NEGATIVE) 11/15/20 07:42 Blood Type O NEGATIVE 11/15/20 07:44 Gel Antibody Screen Positive 11/15/20 07:44 - Allergies Allergies/Adverse Reactions: Allergies Allergy/AdvReac Type Severity Reaction Status Date / Time Sulfa (Sulfonamide Allergy Other Verified 10/07/18 14:36 Antibiotics) - Acknowledgements Anesthesia Type Planned: Epidural Pt an Appropriate Candidate for the Planned Anesthesia: Yes Alternatives and Risks of Anesthesia Discussed w Pt/Guardian: Yes Pt/Guardian Understands and Agrees with Anesthesia Plan: Yes PreAnesthesia Questionnaire Respiratory History: Reports: Asthma Genitourinary History: Reports: UTI, 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: , Spontaneous Other OB/BYN History: asherman's syndrome, PPH WITH PRIOR DELIVERY Neurological History: Reports: Migraines Hematologic History: Reports: Blood Transfusion(s) - Past Surgical History HEENT Surgical History: Reports: Oral Surgery Female Surgical History: Reports: D&C - HOME MEDS Home Medications: Home Meds Vits #93/Iron Fum/FA [ Formula Tablet] 1 tab PO DAILY 10/07/18 [History] - CURRENT (IN HOUSE) MEDS Current Meds: Current Medications Diphenhydramine HCl (Diphenhydramine 50 Mg/Ml Sdv) 25 mg IVPUSH Q6H PRN PRN Reason: pruritis Ephedrine Sulfate (Ephedrine 50 Mg/Ml Sdv) 5 mg IVPUSH ASDIRECTED PRN PRN Reason: Hypotension Fentanyl (Fentanyl 100 Mcg/2 Ml Sdv) 100 mcg EPIDUR Q3H PRN PRN Reason: Pain Last Admin: 11/15/20 09:36 Dose: 100 mcg Documented by: Fentanyl/Bupivacaine HCl (Bupivacaine/Fentanyl/Ns 100 Ml Bag) 100 ml EPIDUR ASDIRECTED PRN PRN Reason: Pain Last Admin: 11/15/20 09:36 Dose: 100 ml Documented by: Oxytocin/Lactated Ringer's (Pitocin In Lr 10 Units/1,000 Ml) 10 unit in 1,000 mls @ 12 mls/hr IV TITRATE ROSSANA; Protocol Last Admin: 11/15/20 08:39 Dose: 2 munits/min, 12 mls/hr Documented by: Oxytocin/Lactated Ringer's (Pitocin In Lr 10 Units/1,000 Ml) 10 unit in 1,000 mls @ 500 mls/hr IV .CONTINUOUS ROSSANA Lactated Ringer's (Ringers, Lactated) 1,000 mls @ 40 mls/hr IV ASDIRECTED ROSSANA Last Admin: 11/15/20 09:37 Dose: 40 mls/hr Documented by: Nalbuphine HCl (Nalbuphine 10 Mg/1 Ml Vial) 10 mg IVPUSH Q2H PRN PRN Reason: Pain Ondansetron HCl (Ondansetron 4 Mg/2 Ml Sdv) 4 mg IVPUSH Q4H PRN PRN Reason: Nausea/Vomiting Sodium Chloride (Sodium Chloride 0.9% 10 Ml Syringe) 10 ml FLUSH ASDIRECTED PRN PRN Reason: Keep Vein Open
[2020-11-15] MEDS: Ondansetron 4 MG/2 ML SDV IVPUSH PRN ×2 (10:39→17:52)
[2020-11-15] MEDS ORDERED: Betamethasone Acetate/Betamethasone Sod Phosphate 30 MG/5 ML MDV IM ONE (13:53)
[2020-11-15] MEDS ORDERED: Calcium Carbonate 500 MG Tab.Chew PO PRN (16:47)
--- NOTE | 2020-11-15 19:19 | PCM.DEL ---
L & D Note - General Info Date of Service: 11/15/20 - Delivery Note Labor: Induced by ARM, Induced by Oxytocin Delivery Outcome: Livebirth Infant Delivery Method: Spontaneous Vaginal Delivery-Single Infant Delivery Mode: Spontaneous Presentation: Vertex Nuchal Cord: None Anesthesia Type: Epidural Amniotic Fluid Description: Clear Episiotomy Type: None Laceration: 1st Degree, Perineal Suture type: Vicryl Suture size: 2-0 Placenta: Intact, Spontaneous Cord: 3 Vessels Estimated Blood Loss: 200 : Bulb Syringe, Stimulated, Warmed, [place] Used, Warmer Used Delivery Comments (Free Text/Narrative):: Patient found to be complete and began pushing. With maternal pushing effort head delivered from an JUANCARLOS presentation. No nuchal cord present. With gentle downward traction shoulders and body delivered. Infant placed on maternal abdomen. Cord clamped and cut. Cord blood obtained. Placenta allowed time to separate and expelled intact. Inspection of perineum showed a 1st degree laceration repaired with a 2-0 Vicryl - General Info Date of Service: 11/15/20 - Patient Data Vitals - Most Recent: Last Vital Signs Temp 36.8 C 11/15/20 08:03 Pulse 75 11/15/20 08:03 Resp 16 11/15/20 08:03 BP 105/69 11/15/20 08:03 Pulse Ox 96 11/15/20 08:03 Weight - Most Recent: 69.853 kg I&O - Last 24 Hours: Intake & Output 11/15/20 11/15/20 11/15/20 06:59 14:59 22:59 Output Total Balance @ Lab Results Last 24 Hours: Laboratory Results - last 24 hr 11/15/20 11/15/20 11/15/20 Range/Units 07:42 07:44 07:44 WBC 9.70 (3.98-10.04) K/mm3 RBC 4.26 (3.98-5.22) M/mm3 Hgb 11.5 (11.2-15.7) gm/dl Hct 35.5 (34.1-44.9) % MCV 83.3 D (79.4-94.8) fl MCH 27.0 (25.6-32.2) pg MCHC 32.4 (32.2-35.5) g/dl RDW Std Deviation 40.6 (36.4-46.3) fL Plt Count 171 L (182-369) K/mm3 MPV 12.2 (9.4-12.3) fl SARS-CoV-2 RNA (GRAZYNA) Negative (NEGATIVE) Blood Type O NEGATIVE Gel Antibody Screen Positive Med Orders - Current: Current Medications Calcium Carbonate/Glycine (Calcium Carbonate 500 Mg Tab.Chew) 500 mg PO Q2H PRN PRN Reason: Indigestion Last Admin: 11/15/20 16:55 Dose: 500 mg Documented by: Diphenhydramine HCl (Diphenhydramine 50 Mg/Ml Sdv) 25 mg IVPUSH Q6H PRN PRN Reason: pruritis Ephedrine Sulfate (Ephedrine 50 Mg/Ml Sdv) 5 mg IVPUSH ASDIRECTED PRN PRN Reason: Hypotension Last Admin: 11/15/20 10:27 Dose: 5 mg Documented by: Fentanyl (Fentanyl 100 Mcg/2 Ml Sdv) 100 mcg EPIDUR Q3H PRN PRN Reason: Pain Last Admin: 11/15/20 09:36 Dose: 100 mcg Documented by: Fentanyl/Bupivacaine HCl (Bupivacaine/Fentanyl/Ns 100 Ml Bag) 100 ml EPIDUR ASDIRECTED PRN PRN Reason: Pain Last Admin: 11/15/20 17:59 Dose: 100 ml Documented by: Oxytocin/Lactated Ringer's (Pitocin In Lr 10 Units/1,000 Ml) 10 unit in 1,000 mls @ 12 mls/hr IV TITRATE ROSSANA; Protocol Last Titration: 11/15/20 12:44 Dose: 8 munits/min, 48 mls/hr Documented by: Oxytocin/Lactated Ringer's (Pitocin In Lr 10 Units/1,000 Ml) 10 unit in 1,000 mls @ 500 mls/hr IV .CONTINUOUS ROSSANA Lactated Ringer's (Ringers, Lactated) 1,000 mls @ 40 mls/hr IV ASDIRECTED ROSSANA Last Admin: 11/15/20 10:47 Dose: 40 mls/hr Documented by: Nalbuphine HCl (Nalbuphine 10 Mg/1 Ml Vial) 10 mg IVPUSH Q2H PRN PRN Reason: Pain Ondansetron HCl (Ondansetron 4 Mg/2 Ml Sdv) 4 mg IVPUSH Q4H PRN PRN Reason: Nausea/Vomiting Last Admin: 11/15/20 17:52 Dose: 4 mg Documented by: Sodium Chloride (Sodium Chloride 0.9% 10 Ml Syringe) 10 ml FLUSH ASDIRECTED PRN PRN Reason: Keep Vein Open Discontinued Medications Betamethasone Acet/Betameth SodPhos (Betamethasone Acetate/Betamethasone Sod Phosphate 30 Mg/5 Ml Mdv) 12 mg IM ONETIME ONE Stop: 11/15/20 13:54 - Exam Urinary Catheter Total Time: 0Days 0Hours - Problem List & Annotations (1) 39 weeks gestation of SNOMED Code(s): 03738655 Code(s): Z3A.39 - 39 WEEKS GESTATION OF Status: Acute Current Visit: No (2) Rh negative state in antepartum period SNOMED Code(s): 761073794 Code(s): O26.899 - OTH RELATED CONDITIONS, UNSPECIFIED TRIMESTER; Z67.91 - UNSPECIFIED BLOOD TYPE, RH NEGATIVE Status: Acute Current Visit: No (3) Vaginal delivery SNOMED Code(s): 004666519 Code(s): O80 - ENCOUNTER FOR FULL-TERM UNCOMPLICATED DELIVERY Status: Acute Current Visit: Yes - Problem List Review Problem List Initiated/Reviewed/Updated: Yes - My Orders Last 24 Hours: My Active Orders 11/15/20 Breakfast Regular Diet [DIET] 11/15/20 07:22 Patient Status [ADT] Routine Communication Order [RC] ASDIRECTED Communication Order [RC] ASDIRECTED Communication Order [RC] ASDIRECTED Non Stress Test [RC] PER UNIT ROUTINE Notify Provider [RC] ASDIRECTED Notify Provider [RC] PRN Vaginal Exam [RC] ASDIRECTED Nalbuphine [Nubain] 10 mg IVPUSH Q2H PRN Ondansetron [Zofran] 4 mg IVPUSH Q4H PRN Sodium Chloride 0.9% [Saline Flush] 10 ml FLUSH ASDIRECTED PRN Electronic Heart Tones Ext w TOCO [WOMSER] Routine Electronic Heart Tones Internal [WOMSER] Per Unit Routine Peripheral IV Insertion Adult [OM.PC] Routine Resuscitation Status Routine 11/15/20 07:23 Heart Tones [RC] ASDIRECTED Peripheral IV Care [RC] . DIRECTED Up ad Judy [RC] ASDIRECTED 11/15/20 07:30 Lactated Ringers [Ringers, Lactated] 1,000 ml IV ASDIRECTED Oxytocin/Lactated Ringers [Pitocin in LR 10 Units/1,000 ML] 10 unit in 1,000 ml IV .CONTINUOUS Oxytocin/Lactated Ringers [Pitocin in LR 10 Units/1,000 ML] 10 unit in 1,000 ml IV TITRATE 11/15/20 07:44 ANTIBODY IDENTIFICATION [BBK] Routine HEP C VIRUS AB [REF] Routine RAPID PLASMA REAGIN,RPR [CHEM] Routine TYPE AND SCREEN [BBK] Routine 11/15/20 16:47 Calcium Carbonate [Tums] 500 mg PO Q2H PRN - Assessment Assessment:: PPD#0 - Plan Plan:: * ROutine cares * Breast feeding * Assess baby blood type to see if Rhogam required * Discharge home in 1-2 days
[2020-11-15] MEDS ORDERED: Acetaminophen/oxyCODONE 325-5 MG Tab PO PRN (19:44)
[2020-11-15] MEDS ORDERED: Docusate Sodium 100 MG Cap PO PRN (19:44)
[2020-11-15] MEDS ORDERED: Benzocaine/Menthol 20%-0.5% Spray 56 GM Canister TOP PRN (19:44)
[2020-11-15] MEDS ORDERED: Acetaminophen 325 MG Tab PO PRN (19:44)
[2020-11-15] MEDS: Ibuprofen 600 MG Tab PO PRN (21:03)
[2020-11-15] MEDS: Witch Hazel Medicated Pads 40/Jar TOP PRN (21:03)
[2020-11-16] MEDS: Ibuprofen 600 MG Tab PO PRN ×2 (06:10→13:23)
--- NOTE | 2020-11-16 06:47 | PCM.PNPP ---
- General Info Date of Service: 11/16/20 Functional Status: Reports: Pain Controlled, Tolerating Diet, Ambulating, Urinating - Review of Systems General: Reports: No Symptoms Pulmonary: Reports: No Symptoms Cardiovascular: Reports: No Symptoms Gastrointestinal: Reports: No Symptoms Genitourinary: Reports: No Symptoms Musculoskeletal: Reports: No Symptoms Neurological: Reports: No Symptoms - Patient Data Vital Signs - Most Recent: Last Vital Signs Temp 36.5 C 11/16/20 03:56 Pulse 70 11/16/20 03:56 Resp 16 11/16/20 03:56 BP 97/52 L 11/16/20 03:56 Pulse Ox 96 11/16/20 03:56 Weight - Most Recent: 69.853 kg I&O - Last 24 Hours: Intake & Output 11/15/20 11/15/20 11/16/20 14:59 22:59 06:59 Output Total 167 Balance @ -167 Lab Results - Last 24 Hours: Laboratory Results - last 24 hr 11/15/20 11/15/20 11/15/20 Range/Units 07:42 07:44 07:44 WBC 9.70 (3.98-10.04) K/mm3 RBC 4.26 (3.98-5.22) M/mm3 Hgb 11.5 (11.2-15.7) gm/dl Hct 35.5 (34.1-44.9) % MCV 83.3 D (79.4-94.8) fl MCH 27.0 (25.6-32.2) pg MCHC 32.4 (32.2-35.5) g/dl RDW Std Deviation 40.6 (36.4-46.3) fL Plt Count 171 L (182-369) K/mm3 MPV 12.2 (9.4-12.3) fl RPR Non-reactive (NONREACTIVE) SARS-CoV-2 RNA (GRAZYNA) Negative (NEGATIVE) Blood Type Gel Antibody Screen 11/15/20 Range/Units 07:44 WBC (3.98-10.04) K/mm3 RBC (3.98-5.22) M/mm3 Hgb (11.2-15.7) gm/dl Hct (34.1-44.9) % MCV (79.4-94.8) fl MCH (25.6-32.2) pg MCHC (32.2-35.5) g/dl RDW Std Deviation (36.4-46.3) fL Plt Count (182-369) K/mm3 MPV (9.4-12.3) fl RPR (NONREACTIVE) SARS-CoV-2 RNA (GRAZYNA) (NEGATIVE) Blood Type O NEGATIVE Gel Antibody Screen Positive Med Orders - Current: Current Medications Acetaminophen (Acetaminophen 325 Mg Tab) 650 mg PO Q4H PRN PRN Reason: mild pain or fever Benzocaine/Menthol (Benzocaine/Menthol 20%-0.5% [place] 56 Gm Canister) 0 gm TOP ASDIRECTED PRN PRN Reason: Perineal Comfort Measure Last Admin: 11/15/20 21:04 Dose: 1 can Documented by: Docusate Sodium (Docusate Sodium 100 Mg Cap) 100 mg PO BID PRN PRN Reason: Constipation Last Admin: 11/15/20 21:03 Dose: 100 mg Documented by: Ibuprofen (Ibuprofen 600 Mg Tab) 600 mg PO Q6H PRN PRN Reason: Mild pain or fever Last Admin: 11/16/20 06:10 Dose: 600 mg Documented by: Oxycodone/Acetaminophen (Acetaminophen/Oxycodone 325-5 Mg Tab) 1 tab PO Q4H PRN PRN Reason: Pain (moderate 4-6) Witch Abel (Witch Abel Medicated Pads 40/Jar) 1 pad TOP ASDIRECTED PRN PRN Reason: Perineal Comfort Measure Last Admin: 11/15/20 21:03 Dose: 1 tub Documented by: Discontinued Medications Betamethasone Acet/Betameth SodPhos (Betamethasone Acetate/Betamethasone Sod Phosphate 30 Mg/5 Ml Mdv) 12 mg IM ONETIME ONE Stop: 11/15/20 13:54 Last Admin: 11/15/20 22:37 Dose: Not Given Documented by: Calcium Carbonate/Glycine (Calcium Carbonate 500 Mg Tab.Chew) 500 mg PO Q2H PRN PRN Reason: Indigestion Last Admin: 11/15/20 16:55 Dose: 500 mg Documented by: Diphenhydramine HCl (Diphenhydramine 50 Mg/Ml Sdv) 25 mg IVPUSH Q6H PRN PRN Reason: pruritis Ephedrine Sulfate (Ephedrine 50 Mg/Ml Sdv) 5 mg IVPUSH ASDIRECTED PRN PRN Reason: Hypotension Last Admin: 11/15/20 10:27 Dose: 5 mg Documented by: Fentanyl (Fentanyl 100 Mcg/2 Ml Sdv) 100 mcg EPIDUR Q3H PRN PRN Reason: Pain Last Admin: 11/15/20 09:36 Dose: 100 mcg Documented by: Fentanyl/Bupivacaine HCl (Bupivacaine/Fentanyl/Ns 100 Ml Bag) 100 ml EPIDUR ASDIRECTED PRN PRN Reason: Pain Last Admin: 11/15/20 17:59 Dose: 100 ml Documented by: Oxytocin/Lactated Ringer's (Pitocin In Lr 10 Units/1,000 Ml) 10 unit in 1,000 mls @ 12 mls/hr IV TITRATE ROSSANA; Protocol Last Titration: 11/15/20 12:44 Dose: 8 munits/min, 48 mls/hr Documented by: Oxytocin/Lactated Ringer's (Pitocin In Lr 10 Units/1,000 Ml) 10 unit in 1,000 mls @ 500 mls/hr IV .CONTINUOUS ROSSANA Lactated Ringer's (Ringers, Lactated) 1,000 mls @ 40 mls/hr IV ASDIRECTED ROSSANA Last Admin: 11/15/20 10:47 Dose: 40 mls/hr Documented by: Nalbuphine HCl (Nalbuphine 10 Mg/1 Ml Vial) 10 mg IVPUSH Q2H PRN PRN Reason: Pain Ondansetron HCl (Ondansetron 4 Mg/2 Ml Sdv) 4 mg IVPUSH Q4H PRN PRN Reason: Nausea/Vomiting Last Admin: 11/15/20 17:52 Dose: 4 mg Documented by: Sodium Chloride (Sodium Chloride 0.9% 10 Ml Syringe) 10 ml FLUSH ASDIRECTED PRN PRN Reason: Keep Vein Open - Infant Interaction Disposition, : [place] in Room with Family Infant Interaction: Holding Infant Feeding: Attempted ; Nursed Fair/Poor Support Person: - Recovery Exam Fundal Tone: Firm Fundal Level: At Umbilicus Fundal Placement: Midline Lochia Amount: Small Lochia Color: Rubra/Red Perineum Description: Other (see below) Other Perinuem Description: 1st degree laceration with repair Episiotomy/Laceration: Approximated Bladder Status: Voiding Urinary Elimination: Voided - Exam General: Alert, Oriented, Cooperative GI/Abdominal Exam: Soft, Non-Tender Extremities: Normal Inspection - Problem List & Annotations (1) 39 weeks gestation of SNOMED Code(s): 99421704 Code(s): Z3A.39 - 39 WEEKS GESTATION OF Status: Acute Current Visit: No (2) Rh negative state in antepartum period SNOMED Code(s): 743515368 Code(s): O26.899 - OTH RELATED CONDITIONS, UNSPECIFIED TRIMESTER; Z67.91 - UNSPECIFIED BLOOD TYPE, RH NEGATIVE Status: Acute Current Visit: No (3) Vaginal delivery SNOMED Code(s): 319632186 Code(s): O80 - ENCOUNTER FOR FULL-TERM UNCOMPLICATED DELIVERY Status: Acute Current Visit: Yes - Problem List Review Problem List Initiated/Reviewed/Updated: Yes - My Orders Last 24 Hours: My Active Orders 11/15/20 07:22 Resuscitation Status Routine 11/15/20 07:44 ANTIBODY IDENTIFICATION [BBK] Routine HEP C VIRUS AB [REF] Routine TYPE AND SCREEN [BBK] Routine 11/15/20 Dinner Regular Diet [DIET] 11/15/20 19:44 Acetaminophen [TylenoL] 650 mg PO Q4H PRN Acetaminophen/oxyCODONE [Percocet 325-5 MG] 1 tab PO Q4H PRN Benzocaine/Menthol [Dermoplast Pain Relief [place]] See Dose Instructions TOP ASDIRECTED PRN Docusate Sodium [Colace] 100 mg PO BID PRN Ibuprofen [Motrin] 600 mg PO Q6H PRN witch Abel [Tucks] 1 pad TOP ASDIRECTED PRN Heat Therapy [OM.PC] PRN 11/15/20 19:44 Activity as Tolerated [RC] PER UNIT ROUTINE Vital Signs [RC] 09,15,21,03 Assess Lochia [WOMSER] Per Unit Routine Assess Uterine Involution [WOMSER] Per Unit Routine Breast Pump [WOMSER] Per Unit Routine Ice Therapy [OM.PC] Per Unit Routine Perineal Care [OM.PC] Per Unit Routine Peripheral IV Discontinue [OM.PC] Routine Sitz Bath [OM.PC] Per Unit Routine 11/16/20 06:46 Ready for Discharge [RC] PER UNIT ROUTINE 11/16/20 19:44 Heat Therapy [OM.PC] PRN - Assessment Assessment:: PPD#1 - Plan Plan:: * Routine cares * Breast feeding * Baby Rh negative. No need for Rhogam * Discharge home today vs tomorrow depending upon Pediatric team preference
--- NOTE | 2020-11-16 07:48 | PCM48HPAN ---
Post Anesthesia Note - EVALUATION WITHIN 48HRS OF ANESTHETIC Vital Signs in Normal Range: Yes Patient Participated in Evaluation: Yes Respiratory Function Stable: Yes Airway Patent: Yes Cardiovascular Function Stable: Yes Hydration Status Stable: Yes Pain Control Satisfactory: Yes Nausea and Vomiting Control Satisfactory: Yes Mental Status Recovered: Yes Vital Signs: Last Vital Signs Temp 36.5 C 11/16/20 03:56 Pulse 70 11/16/20 03:56 Resp 16 11/16/20 03:56 BP 97/52 L 11/16/20 03:56 Pulse Ox 96 11/16/20 03:56
[2020-11-16] MEDS: Witch Hazel Medicated Pads 40/Jar TOP PRN (19:58)
== END 2020-11-16 20:08 | disposition home or self-care (01) | DRG 807 ==
LOC: JD.OB 07:18 → OBSVTOIN 19:06 → JD.OB 19:06
PROVIDERS: ADMIT Obstetrics & Gynecology; ATTEND Obstetrics & Gynecology
PROC: 10E0XZZ Delivery of Products of Conception, External Approach (ICD-10-PCS; principal; 2020-11-15)
PROC: 10907ZC Drainage of Amniotic Fluid, Therapeutic from Products of Conception, Via Natural or Artificial Opening (ICD-10-PCS; 2020-11-15)
PROC: 3E033VJ Introduction of Other Hormone into Peripheral Vein, Percutaneous Approach (ICD-10-PCS; 2020-11-15)
PROC: 0HQ9XZZ Repair Perineum Skin, External Approach (ICD-10-PCS; 2020-11-15)
PROC: 3E0R3BZ Introduction of Anesthetic Agent into Spinal Canal, Percutaneous Approach (ICD-10-PCS; 2020-11-15)
DX: O99.52 Diseases of the respiratory system complicating childbirth (principal); Z37.0 Single live birth; J45.909 Unspecified asthma, uncomplicated; Z3A.39 39 weeks gestation of pregnancy; Z88.2 Allergy status to sulfonamides; O70.0 First degree perineal laceration during delivery; Z20.822 Contact with and (suspected) exposure to COVID-19
CPT/HCPCS: 01967; 36415; 51702; 59025; 59409; 85027; 86592; 86803; 86850; 86870; 86900; 86901; A9270-GY; J2405; J2590; J3010; J3490; J7120; U0002